=== PATIENT | female | born 1965 | race Caucasian/White ===

== ENCOUNTER 2024-11-02 17:13 | Outpatient (REF) | payer OTHER, SELFPAY | END 2024-11-02 17:14 | disposition home or self-care (01) | LOC: LAB 17:13 | PROVIDERS: Visit Provider Obstetrics & Gynecology | DX: Z01.419 Encounter for gynecological examination (general) (routine) without abnormal findings (principal) | CPT/HCPCS: 87624; 88175 ==

== ENCOUNTER 2025-06-09 14:28 | Outpatient (OUT) | payer OTHER, SELFPAY ==
--- OUTSIDE RECORDS SUMMARY | 2025-06-09 14:32 | XMS_ITS | CCD ---
Author Organization [facility] Care Team Providers Care Eyedotter Name Role Phone Unavailable Unavailable Unavailable ROBB, DR CRAWFORD Primary Care Unavailable WOLF IZQUIERDO Admitting Unavailable WOLF IZQUIERDO Attending Unavailable DR BEN OROZCO Consulting Unavailable WOLF IZQUIERDO Consulting Unavailable SUSHILA PALACIOS Attending Unavailable Problems Active Problems Problem ClassificationProblemDateDocumented DateEpisodic/ChronicImmunizations and screening for infectious disease (1 source)Encounter for immunization; Translations: [Encounter For Immunization] Onset: 85-86-9458Tfjesvme Past or Other Problems Problem ClassificationProblemDateDocumented DateEpisodic/ChronicOther screening for suspected conditions (not mental disorders or infectious disease) (4 sources)Encounter for screening mammogram for malignant neoplasm of breast; Translations: [ENC SCR MAMMO MALIG NEOPLASM BREAST]Onset: 95-78-1889Jehmltom Residual codes; unclassified (1 source)Family history of malignant neoplasm of trachea, bronchus and lung; Translations: [FAM HX MALIG NEOPLSM TRACH BRON LNG]Onset: 24-20-1781Pgnyuakv Residual codes; unclassified (1 source)Family history of malignant neoplasm of digestive organs; Translations: [FAM HX MALIG NEOPLASM DIGESTIV ORGN]Onset: 32-98-4779Mqfkfhrt Residual codes; unclassified (1 source)Family history of malignant neoplasm of breast; Translations: [FAMILY HX MALIG NEOPLASM OF BREAST]Onset: 09-64-6145Vyglgajl Results Test NameValueInterpretationReference RangeFacilityMG MAMM SCREEN 3D SHAWN CADon 89-12-2999FR MAMM SCREEN 3D SHAWN CADPatient: DANA PANTOJA Exam Date: 11/06/2020 : 1965 Gender:F Ordering : DR. WOLF IZQUIERDO . Admission #: [id number] Family : Order #: [id number] CLICK HERE TO VIEW EXAM RADIOLOGY REPORT PROCEDURE: MAMMOGRAM SCREENING 3D BILATERAL CAD COMPARISON: MG MAMM SCREEN SHAWN W CAD, 07/28/2014. MG MAMM SCREEN SHAWN W CAD, 08/03/2015. MG MAMM SCREEN SHAWN W CAD, 07/27/2017. MG MAMM SCREEN SHAWN W CAD, 09/06/2019. INDICATIONS: Screening mammography Calculator Name NCI Breast Cancer Risk Assessment Tool 5 Year Breast Cancer Risk 1.70% Lifetime Breast Cancer Risk 12.60% Personal Breast Cancer No Personal Ovarian Cancer No Treatments None Family Cancers Grandmother-maternal with lung cancer at age 60; Grandfather-maternal with lung cancer at age 60; Grandmother-paternal with colon cancer at age 70. LOCATION: [facility] BREAST COMPOSITION: Heterogeneously dense, which may obscure small masses. FINDINGS: DIAGNOSTIC CATEGORY 2--BENIGN FINDING: RIGHT BREAST: No significant suspicious finding. Scattered benign-appearing calcifications are present. No significant change has occurred. LEFT BREAST: No significant suspicious finding. No significant change has occurred. RECOMMENDATIONS: ROUTINE MAMMOGRAM AND CLINICAL EVALUATION IN 12 MONTHS. PLEASE NOTE: A NORMAL MAMMOGRAM DOES NOT EXCLUDE THE POSSIBILITY OF BREAST CANCER. A CLINICALLY SUSPICIOUS PALPABLE LUMP SHOULD BE BIOPSIED. Dictated by: Ben Orozco M.D. on 11/07/2020 at 07:30 Approved by: Ben Orozco M.D. on 11/07/2020 at 07:48[facility] Encounters Encounter DateEncounter TypeCare ProviderFacilityStart: 11-02-2024 End: 27-48-2307lcybuazmcaRHHMM FAZIONot AvailableStart: 11-19-2020 End: 42-37-2025Oyirtwe encounter procedureSarah Collinxuan Work Phone: [facility] Work Phone: Start: 11-06-2020 End: 28-06-5347fxqghqrgzwQQ DOCTOR MISCFacility:H1 Procedures DateProcedureProcedure DetailPerforming ClinicianStart: 39-26-4570Rga. administration COVID19 [facility] [employer] Linda Manzanares Work Phone: Start: 10-14-6285QZBA-CoV-2 vaccine, 0.5ml Maddy Leighton Work Phone: Immunizations Immunization DateImmunizationNotesCare ShlcknjoIeromtil28-26-9042Byboaff and Johnson COVID 19 [facility] Work Phone: Comment on above:Note: Patient tolerated well. No signs or symptoms of adverse reactions. Patient waited a minimum of 15 minutes. Payers DatePayer CategoryPayerPolicy [id number] Social History DateTypeDetailFacilityTobacco smoking statusUnknown if ever smokedNewton-Welles[facility] Work Phone: Reason for Referral No Reason for Referral Recorded Assessments Findings Encounter Date Encounter for Immunization 1st COVID Vaccine malia sugar Sarah Leighton PharmD 11/19/2020 Instructions Instructions not supported for this document type No Instructions Recorded History of Present Illness History of Present Illness not supported for this document type No History of Present Illness Recorded Family History Includes: Family History in patient's chart No Family History RecordedNo Family History Records FoundNo Family History Records Found Review of System Review of Systems not supported for this document type No Review of Systems Recorded Physical Exam Physical Exam not supported for this document type No Physical Exam Recorded Advance Directives Includes: Current Advance Directives No Advance Directives RecordedNo Advanced Directives Records FoundNo Advanced Directives Records Found Summary Purpose Additional Source Comments Medical History (unrecognize d section and content) Includes: Medical History in patient's chartNo Medical History Recorded Evaluations & Outcomes (unre cognized section and content) Includes: Evaluations & Outcomes for active GoalsNo Outcomes Recorded INFORMATION SOURCE (unrecogn ized section and content) DATE CREATED AUTHOR 03/28/2021 [facility] DATE CREATED AUTHOR AUTHOR'S PRESTON RODRIGUEZ 11/04/2024 [facility] EPIC FOR RECORDS PERTAINING TO PATIENTS WHO ARE OR HAVE BEEN ENROLLED IN A CHEMICAL DEPENDENCY/SUBSTANCEABUSE PROGRAM, SOME INFORMATION MAY BE OMITTED. This clinical summary was aggregated from multiple sources. Caution should be exercised in using it in the provision of clinical care. This summary normalizes information from multiple sources, and as a consequence, information in this document may materially change the coding, format and clinical context of patient data. In addition, data may be omitted in some cases. CLINICAL DECISIONS SHOULD BE BASED ON THE PRIMARY CLINICAL RECORDS. [email or web address] provides no warranty or guarantee of the accuracy or completeness of information in this document.
--- OUTSIDE RECORDS SUMMARY | 2025-06-09 14:32 | XMS_ITS | Clinical Summary ---
Author Organization [facility] Address [address] [place] [address] Care Team Providers Care Learning Manager Name Role Phone Unavailable Primary Care Provider Unavailabl e Allergies No known active allergies Medications No known medications Active Problems ProblemNoted DateDiagnosed DateEncounter for screening for osteoporosis 11/29/2024 Family History Medical HistoryRelationNameCommentsGoutFatherHeart diseaseFatherdefibulatorhigh blood pressureFatherAlzheimer's diseaseMotherHeart diseaseMotherHypercalcemia MotherNo Known ProblemsOtherRelationNameStatusCommentsFatherMotherDeceasedOther Social History Tobacco UseTypesPacks/DayYears UsedDateSmoking Tobacco: Never Assessed CommentsNoSex and Gender InformationValueDate RecordedSex Assigned at BirthNot on fileLegal UyaSixetw73/12/2024 9:41 AM EDTGender IdentityNot on fileSexual OrientationNot on file Last Filed Vital Signs Vital SignReadingTime TakenCommentsBlood Ngxlsroz265/7411/02/2024 2:40 PM EDT Pulse--Temperature--Respiratory Rate--Oxygen Saturation--Inhaled Oxygen Concentration--Ycdhle20.2 kg (201 lb 1.9 oz)11/02/2024 2:40 PM YYHVuijxu259.7 cm (5' 8 )11/02/2024 2:40 PM EDTBody Mass Index30.58011/02/2024 2:40 PM EDT Plan of Treatment DateTypeDepartmentCare Team (Latest Contact Info)Dusdngasytr08/24/2026 2:00 PM EDTOffice Visit [facility] [address] [place] [id number] Uriah Greene DO [address] [place] [address] Health MaintenanceDue DateLast DoneCommentsCT Zoodlmpetgvn1965Colonoscopy 1965Colorectal Cancer Gptfjttik1967FIT-DNA1967FIT1965 FOBT1965 0141Irmsjgijyagce48/26/2665Oqkwyhwyo56/26/2007Influenza Vaccine (#1) 5Cervical Cancer Dqcztzclj50/19/2030HPV/Hgedjq0511/02/2029Pap Smear Procedures Procedure NamePriorityDate/TimeAssociated DiagnosisCommentsPAP SMEARRoutine 11/02/2024 12:00 AM EDTfrom Last 3 Months or Most Recently Relevant to Health Maintenance Results * Pap Smear (11/02/2024 12:00 AM EDT)Specimen (Source)Anatomical Location / LateralityCollection Method / VolumeCollection TimeReceived TimeSwabCervical swab / Unknown Narrative Authorizing ProviderResult TypeResult StatusCorey Ramona DOLAB CYTOLOGY ORDERABLESFinal ResultPerforming OrganizationAddressCity/State/ZIP CodePhone Number EXTERNAL LAB from Last 3 Months or Most Recently Relevant to Health Maintenance Insurance * Guarantor: Darin Zarate TypeRelation to PatientDate of BirthPhone Billing AddressPersonal/NqbkonBbjq1965 [address] [place] [address]
--- NOTE | 2025-06-09 14:34 | MM_ITS ---
Patient Name: DANA PANTOJA MR#: [id number] : 1965 Exam Date: 06/09/2025 Ordering Doctor: DR SUSHILA PALACIOS . RADIOLOGY REPORT PROCEDURE: MM TOMOSYNTHESIS SCREENING BI COMPARISON: MG MAMM SCREEN 3D SHAWN CAD, 11/06/2020. MG MAMM SCREEN SHAWN W CAD, 09/06/2019. MG MAMM SCREEN SHAWN W CAD, 07/27/2017. MG MAMM SCREEN SHAWN W CAD, 07/28/2014. INDICATIONS: screening for breast cancer Calculator Name [facility] Breast Cancer Risk Assessment Tool 5 Year Breast Cancer Risk 1.90% Lifetime Breast Cancer Risk 11.70% Personal Breast Cancer No Personal Ovarian Cancer No Treatments None Family Cancers Grandmother-maternal with lung cancer at age ~60; Grandfather-maternal with lung cancer at age ~60; Grandmother-paternal with colon cancer at age ~70. LOCATION: [facility] BREAST COMPOSITION: The breasts are heterogeneously dense, which may obscure small masses. FINDINGS: RIGHT BREAST: No significant suspicious finding. There is a similar focal asymmetry. Benign-appearing lymph nodes are noted. Benign-appearing calcifications are present. LEFT BREAST: No significant suspicious finding. Benign-appearing calcifications are present. Benign-appearing lymph nodes are noted along the chest wall. DIAGNOSTIC CATEGORY 2--BENIGN FINDING. NO CHANGE FROM COMPARISON. RECOMMENDATIONS: ROUTINE MAMMOGRAM AND CLINICAL EVALUATION IN 12 MONTHS. Dictated by: Ben Prakash MD on 06/09/2025 at 16:18 Approved by: Ben Prakash MD on 06/09/2025 at 16:31
== END 2025-06-09 14:29 | disposition home or self-care (01) ==
LOC: MAMMO 14:28
PROVIDERS: Visit Provider Obstetrics & Gynecology
DX: Z12.31 Encounter for screening mammogram for malignant neoplasm of breast (principal); Z78.0 Asymptomatic menopausal state; Z01.419 Encounter for gynecological examination (general) (routine) without abnormal findings; Z13.820 Encounter for screening for osteoporosis; Z80.1 Family history of malignant neoplasm of trachea, bronchus and lung; Z80.0 Family history of malignant neoplasm of digestive organs; M85.88 Other specified disorders of bone density and structure, other site
CPT/HCPCS: 77063; 77067; 77080